=== PATIENT | male | born 1935 | race Native Hawaiian/Other Pacific Islander ===

== ENCOUNTER 2016-03-06 08:25 | Outpatient (CLI) | payer OTHER ==
[~2016-03-06 08:25] MED LIST: AMLO10TA PO; CIPRO500 MG PO; CLOTCRE5 EX; DIOVAN HC1 PO; DIOVAN HCT320 MG/25 PO; GLIP2.5T3 PO; LEVO0.0723 PO; LIPITOR40 MG PO; LOPRESSOR100 MG PO; WARFARIN5 MG PO
== END 2016-03-06 19:30 | disposition home or self-care (01) ==
LOC: LABW 08:25
DX: D68.8 Other specified coagulation defects (principal)
CPT/HCPCS: 36415; 85610

== ENCOUNTER 2016-04-23 12:31 | Outpatient (CLI) | payer OTHER | END 2016-04-23 19:23 | disposition home or self-care (01) | LOC: LABW 12:31 | DX: D68.8 Other specified coagulation defects (principal) | CPT/HCPCS: 36415; 85610 ==

== ENCOUNTER 2016-05-23 08:35 | Outpatient (CLI) | payer OTHER | END 2016-05-23 19:45 | disposition home or self-care (01) | LOC: LABW 08:35 | DX: D68.8 Other specified coagulation defects (principal) | CPT/HCPCS: 36415; 85610 ==

== ENCOUNTER 2016-06-10 15:53 | Outpatient (CLI) | payer OTHER | END 2016-06-10 19:28 | disposition home or self-care (01) | LOC: LABW 15:53 | DX: D68.8 Other specified coagulation defects (principal) | CPT/HCPCS: 36415; 85610 ==

== ENCOUNTER 2016-06-26 08:37 | Outpatient (CLI) | payer OTHER | END 2016-06-26 19:10 | disposition home or self-care (01) | LOC: LABW 08:37 | DX: D68.9 Coagulation defect, unspecified (principal) | CPT/HCPCS: 36415; 85610 ==

== ENCOUNTER 2016-07-08 08:10 | Outpatient (CLI) | payer OTHER ==
[2016-07-08 08:55] LABS: PLATELET COUNT 238 K/uL (142-355)
[2016-07-08 09:34] LABS: POTASSIUM 4.1 mmol/L (3.6-5.2)
== END 2016-07-08 19:19 | disposition home or self-care (01) ==
LOC: LABW 08:10
PROVIDERS: Internal Medicine
DX: E11.49 Type 2 diabetes mellitus with other diabetic neurological complication (principal)
CPT/HCPCS: 36415; 80053; 80061; 81000; 82043; 82570; 83036; 84439; 84443; 85027

== ENCOUNTER 2016-07-17 11:05 | Outpatient (CLI) | payer OTHER | END 2016-07-17 19:21 | disposition home or self-care (01) | LOC: LABW 11:05 | DX: D68.8 Other specified coagulation defects (principal) | CPT/HCPCS: 36415; 85610 ==

== ENCOUNTER 2016-08-19 08:23 | Outpatient (CLI) | payer OTHER | END 2016-08-19 09:30 | disposition home or self-care (01) | LOC: LABW 08:23 | DX: D68.8 Other specified coagulation defects (principal) | CPT/HCPCS: 36415; 85610 ==

== ENCOUNTER 2016-09-03 15:09 | Inpatient (IN) | payer OTHER ==
[~2016-09-03] VITALS: Ht 180.3 cm; Wt 140.4 kg
[2016-09-03 16:32] VITALS: BP 114/52; TEMP 98.5; Ht 180.3 cm; Wt 140.4 kg
[2016-09-03 16:45] LABS: PLATELET COUNT 285 K/uL (142-355)
[2016-09-03] MEDS ORDERED: JANTOVEN5 MG PO (16:48)
[2016-09-03] MEDS ORDERED: GRALISE600 MG PO (16:48)
[2016-09-03] MEDS ORDERED: FURO20TA67 PO (16:50)
[2016-09-03 16:56] LABS: POTASSIUM 3.9 mmol/L (3.6-5.2)
[2016-09-03 17:02] LABS: PARTIAL THROMBOPLASTIN TIME 31.4 SECONDS (24.5-33.6)
[2016-09-03 20:00] VITALS: BP 143/56; TEMP 99.5
[2016-09-04 00:16] VITALS: BP 134/59; TEMP 99.3
[2016-09-04 04:00] VITALS: BP 104/56; TEMP 98.1
[2016-09-04 06:27] LABS: PLATELET COUNT 268 K/uL (142-355)
[2016-09-04 06:42] LABS: POTASSIUM 3.6 mmol/L (3.6-5.2)
[2016-09-04 08:00] VITALS: BP 98/62; TEMP 98.7
[2016-09-04 12:00] VITALS: BP 156/61; TEMP 98.5
[2016-09-04 16:00] VITALS: BP 128/58; TEMP 99.6
[2016-09-04 20:00] VITALS: BP 152/54; TEMP 100
[2016-09-05 00:20] VITALS: BP 156/51; TEMP 99.5
[2016-09-05 04:00] VITALS: BP 152/52; TEMP 98.9
[2016-09-05 05:15] LABS: PLATELET COUNT 266 K/uL (142-355)
[2016-09-05 05:52] LABS: POTASSIUM 3.7 mmol/L (3.6-5.2)
[2016-09-05 08:00] VITALS: BP 151/69; TEMP 99.3
[2016-09-05 12:00] VITALS: BP 130/64; TEMP 97.3
== END 2016-09-05 13:50 | disposition home or self-care (01) | DRG 603 ==
LOC: MED/SURG 15:09
PROVIDERS: Emergency Medicine; ADMIT Internal Medicine
DX: L03.116 Cellulitis of left lower limb (principal); I73.9 Peripheral vascular disease, unspecified; E11.9 Type 2 diabetes mellitus without complications; I10 Essential (primary) hypertension; I87.2 Venous insufficiency (chronic) (peripheral)
CPT/HCPCS: 36415; 80053; 81000; 82948; 83735; 85027; 85610; 85651; 85730; 86140; 96372; J1644; J3490; Q9963

== ENCOUNTER 2016-09-10 12:59 | Outpatient (CLI) | payer OTHER ==
[~2016-09-10 12:59] MED LIST changes: +FURO20TA67 PO; +GRALISE600 MG PO; +JANTOVEN5 MG PO
== END 2016-09-10 19:37 | disposition home or self-care (01) ==
LOC: LAB 12:59
DX: L03.116 Cellulitis of left lower limb (principal)
CPT/HCPCS: 87070; 87077; 87185; 87186; 87205

== ENCOUNTER 2016-10-21 08:23 | Outpatient (CLI) | payer OTHER | END 2016-10-21 09:25 | disposition home or self-care (01) | LOC: LABW 08:23 | DX: D68.8 Other specified coagulation defects (principal) | CPT/HCPCS: 36415; 85610 ==

== ENCOUNTER 2016-11-19 14:03 | Outpatient (CLI) | payer OTHER | END 2016-11-19 19:13 | disposition home or self-care (01) | LOC: LABW 14:03 | DX: Z79.01 Long term (current) use of anticoagulants (principal); Z51.81 Encounter for therapeutic drug level monitoring | CPT/HCPCS: 36415; 85610 ==

== ENCOUNTER 2016-12-09 09:34 | Outpatient (CLI) | payer OTHER | END 2016-12-09 10:35 | disposition home or self-care (01) | LOC: LABW 09:34 | DX: Z79.01 Long term (current) use of anticoagulants (principal); Z51.81 Encounter for therapeutic drug level monitoring | CPT/HCPCS: 36415; 85610 ==

== ENCOUNTER 2016-12-16 09:36 | Outpatient (CLI) | payer OTHER | END 2016-12-16 19:30 | disposition home or self-care (01) | LOC: LABW 09:36 | DX: Z79.01 Long term (current) use of anticoagulants (principal); Z51.81 Encounter for therapeutic drug level monitoring | CPT/HCPCS: 36415; 85610 ==

== ENCOUNTER 2016-12-26 08:29 | Outpatient (CLI) | payer OTHER | END 2016-12-26 09:45 | disposition home or self-care (01) | LOC: CT 08:29 | DX: R40.4 Transient alteration of awareness (principal) ==

== ENCOUNTER 2017-01-28 11:23 | Outpatient (CLI) | payer OTHER | END 2017-01-28 12:25 | disposition home or self-care (01) | LOC: LABW 11:23 | DX: Z79.01 Long term (current) use of anticoagulants (principal); Z51.81 Encounter for therapeutic drug level monitoring | CPT/HCPCS: 36415; 85610 ==

== ENCOUNTER 2017-03-17 10:13 | Outpatient (CLI) | payer OTHER | END 2017-03-17 19:40 | disposition home or self-care (01) | LOC: LABW 10:13 | DX: Z79.01 Long term (current) use of anticoagulants (principal); Z51.81 Encounter for therapeutic drug level monitoring | CPT/HCPCS: 36415; 85610 ==

== ENCOUNTER 2017-03-20 12:48 | Outpatient (CLI) | payer OTHER | END 2017-03-20 13:40 | disposition home or self-care (01) | LOC: RESP 12:48 | DX: R40.4 Transient alteration of awareness (principal) ==

== ENCOUNTER 2017-04-11 08:32 | Outpatient (CLI) | payer OTHER | END 2017-04-11 19:38 | disposition home or self-care (01) | LOC: LABW 08:32 | DX: Z79.01 Long term (current) use of anticoagulants (principal); Z51.81 Encounter for therapeutic drug level monitoring | CPT/HCPCS: 36415; 85610 ==

== ENCOUNTER → 2017-06-21 17:58 | Outpatient (CLI) | payer OTHER | END | disposition home or self-care (01) | LOC: AMB 17:58 | DX: R04.0 Epistaxis (principal) ==

== ENCOUNTER 2017-07-07 11:22 | Outpatient (CLI) | payer OTHER | END 2017-07-07 21:23 | disposition home or self-care (01) | LOC: LABW 11:22 | DX: Z79.01 Long term (current) use of anticoagulants (principal); Z51.81 Encounter for therapeutic drug level monitoring | CPT/HCPCS: 36415; 85610 ==

== ENCOUNTER 2017-08-19 08:01 | Outpatient (CLI) | payer OTHER | END 2017-08-19 19:58 | disposition home or self-care (01) | LOC: LABW 08:01 | DX: Z79.01 Long term (current) use of anticoagulants (principal) | CPT/HCPCS: 36415; 85610 ==

== ENCOUNTER 2017-09-05 09:35 | Observation (INO) | payer OTHER ==
[~2017-09-05] VITALS: Ht 182.9 cm; Wt 141.2 kg
[2017-09-05 09:35] VITALS: BP 170/78; TEMP 98.4
[2017-09-05 10:27] LABS: PLATELET COUNT 180 K/uL (142-355)
[2017-09-05 10:35] VITALS: BP 174/80
[2017-09-05 10:38] LABS: POTASSIUM 3.7 mmol/L (3.6-5.2); SODIUM 136 mmol/L (136-145)
[2017-09-05 12:35] VITALS: BP 174/80
[2017-09-05 16:00] VITALS: BP 147/46; TEMP 97.7
[2017-09-05 18:02] VITALS: BP 155/60; TEMP 97.8; Ht 182.9 cm; Wt 141.2 kg
[2017-09-05] MEDS ORDERED: DONE5TAB PO (19:46)
[2017-09-05] MEDS ORDERED: METOPROLOL25 M1 PO (19:49)
[2017-09-05 20:00] VITALS: BP 176/51; TEMP 97.7
[2017-09-06] VITALS: BP 90/57; TEMP 98.1
[2017-09-06 04:00] VITALS: BP 141/54; TEMP 98.3
[2017-09-06 07:45] VITALS: BP 150/50; TEMP 97.8
[2017-09-06 12:26] VITALS: BP 158/60; TEMP 97.9
[2017-09-06] MEDS ORDERED: FURO20TA67 PO (14:30)
[2017-09-06] MEDS ORDERED: CLINDAMYCIN PO (14:40)
[2017-09-06] MEDS ORDERED: LOPRESSOR100 MG PO (14:44)
== END 2017-09-06 15:54 | disposition home or self-care (01) ==
LOC: ED 09:35 → MED/SURG 13:04
DX: Q34.8 Other specified congenital malformations of respiratory system (principal); R06.02 Shortness of breath; E11.9 Type 2 diabetes mellitus without complications; I25.10 Atherosclerotic heart disease of native coronary artery without angina pectoris; G47.33 Obstructive sleep apnea (adult) (pediatric); R60.0 Localized edema; L03.116 Cellulitis of left lower limb; L03.115 Cellulitis of right lower limb; E03.8 Other specified hypothyroidism; E66.01 Morbid (severe) obesity due to excess calories; Z68.41 Body mass index [BMI] 40.0-44.9, adult; Z71.3 Dietary counseling and surveillance; R06.4 Hyperventilation; Z86.73 Personal history of transient ischemic attack (TIA), and cerebral infarction without residual deficits
CPT/HCPCS: 36415; 36600; 80053; 82805; 83880; 84443; 84484; 85027; 85379; 85610; 93005; 94640; 94664; 94760; 99220; 99283; G0378; J1940; Q9963

== ENCOUNTER 2017-10-15 09:49 | Outpatient (CLI) | payer OTHER ==
[~2017-10-15 09:49] MED LIST changes: +CLINDAMYCIN PO; +DONE5TAB PO; +METOPROLOL25 M1 PO
== END 2017-10-15 19:26 | disposition home or self-care (01) ==
LOC: LABW 09:49
DX: Z79.01 Long term (current) use of anticoagulants (principal)
CPT/HCPCS: 36415; 85610

== ENCOUNTER 2017-10-30 08:57 | Outpatient (CLI) | payer OTHER | END 2017-10-30 23:18 | disposition home or self-care (01) | LOC: LABW 08:57 | DX: Z79.01 Long term (current) use of anticoagulants (principal) | CPT/HCPCS: 36415; 85610 ==

== ENCOUNTER 2017-11-03 08:31 | Outpatient (CLI) | payer OTHER ==
[2017-11-03 09:09] LABS: PLATELET COUNT 186 K/uL (142-355)
[2017-11-03 09:47] LABS: POTASSIUM 4.2 mmol/L (3.6-5.2)
== END 2017-11-03 23:20 | disposition home or self-care (01) ==
LOC: LABW 08:31
PROVIDERS: Internal Medicine
DX: E11.43 Type 2 diabetes mellitus with diabetic autonomic (poly)neuropathy (principal)
CPT/HCPCS: 36415; 80053; 80061; 83036; 84439; 84443; 85027

== ENCOUNTER 2017-11-04 11:37 | Outpatient (CLI) | payer OTHER | END 2017-11-04 22:24 | disposition home or self-care (01) | LOC: LAB 11:37 | DX: E11.43 Type 2 diabetes mellitus with diabetic autonomic (poly)neuropathy (principal); R82.99 Other abnormal findings in urine | CPT/HCPCS: 81000; 87077; 87086; 87088; 87186 ==

== ENCOUNTER 2017-12-03 10:33 | Outpatient (CLI) | payer OTHER | END 2017-12-03 10:41 | disposition short-term general hospital (02) | LOC: AMB 10:33 | DX: R11.2 Nausea with vomiting, unspecified (principal); R53.1 Weakness | CPT/HCPCS: A0425; A0427 ==

== ENCOUNTER 2017-12-03 10:42 | Observation (INO) | payer OTHER ==
[2017-12-03] VITALS (7 sets, daily range): BP systolic 122–166; BP diastolic 52–87; TEMP 98.1–101.2; Ht 185.4 cm; Wt 140.3 kg
[~2017-12-03] VITALS: Ht 185.4 cm; Wt 140.3 kg
[2017-12-03 11:44] LABS: PLATELET COUNT 239 K/uL (142-355)
[2017-12-03 11:54] LABS: POTASSIUM 3.9 mmol/L (3.6-5.2)
[2017-12-04] VITALS: BP 135/60; TEMP 100.1
[2017-12-04 04:00] VITALS: BP 122/55; TEMP 99.9
[2017-12-04 07:24] LABS: PLATELET COUNT 200 K/uL (142-355)
[2017-12-04 07:27] LABS: POTASSIUM 4.5 mmol/L (3.6-5.2)
[2017-12-04 08:02] VITALS: BP 102/86; TEMP 98.7
[2017-12-04 12:10] VITALS: BP 125/53; TEMP 100.3
== END 2017-12-04 13:00 | disposition home or self-care (01) ==
LOC: ED 10:42 → MED/SURG 12:55
PROVIDERS: Internal Medicine; ADMIT Emergency Medicine
DX: E86.0 Dehydration (principal); R11.2 Nausea with vomiting, unspecified; E11.22 Type 2 diabetes mellitus with diabetic chronic kidney disease; I12.9 Hypertensive chronic kidney disease with stage 1 through stage 4 chronic kidney disease, or unspecified chronic kidney disease; N18.4 Chronic kidney disease, stage 4 (severe); I25.10 Atherosclerotic heart disease of native coronary artery without angina pectoris; E66.01 Morbid (severe) obesity due to excess calories; E11.40 Type 2 diabetes mellitus with diabetic neuropathy, unspecified; G47.33 Obstructive sleep apnea (adult) (pediatric); G25.81 Restless legs syndrome; Z79.899 Other long term (current) drug therapy
CPT/HCPCS: 36415; 80053; 81002; 82150; 82550; 82553; 82805; 82948; 83690; 84484; 85027; 85610; 93005; 94760; 96360; 96374; 99220; 99284; G0378; J1650; J2060; J2405; J3490

== ENCOUNTER 2017-12-17 08:51 | Outpatient (CLI) | payer OTHER ==
[2017-12-17 09:23] LABS: PLATELET COUNT 241 K/uL (142-355)
[2017-12-17 09:38] LABS: POTASSIUM 4.4 mmol/L (3.6-5.2)
== END 2017-12-17 20:56 | disposition home or self-care (01) ==
LOC: LABW 08:51
PROVIDERS: Internal Medicine
DX: Z79.01 Long term (current) use of anticoagulants (principal); D72.829 Elevated white blood cell count, unspecified; N18.3 Chronic kidney disease, stage 3 (moderate); E11.43 Type 2 diabetes mellitus with diabetic autonomic (poly)neuropathy
CPT/HCPCS: 36415; 80069; 83036; 85027; 85610

== ENCOUNTER 2018-01-05 10:23 | Inpatient (IN) | payer OTHER ==
[~2018-01-05] VITALS: Ht 182.9 cm; Wt 135.2 kg
[2018-01-05] VITALS (7 sets, daily range): BP systolic 152–174; BP diastolic 64–83; TEMP 97.9–98.9; Ht 182.9 cm; Wt 135.2 kg
[2018-01-05 11:16] LABS: PLATELET COUNT 208 K/uL (142-355)
[2018-01-05 11:22] LABS: POTASSIUM 4.1 mmol/L (3.6-5.2)
[2018-01-05] MEDS ORDERED: LOPRESSOR100 MG PO (15:26)
[2018-01-05] MEDS ORDERED: WARF5TAB6 PO (15:42)
[2018-01-05 16:20] LABS: PARTIAL THROMBOPLASTIN TIME 26.3 SECONDS (24.5-33.6)
[2018-01-06] VITALS: BP 101/75; TEMP 98.8
[2018-01-06 04:01] VITALS: BP 124/69; TEMP 98.8
[2018-01-06 06:20] LABS: PLATELET COUNT 181 K/uL (142-355)
[2018-01-06 06:40] LABS: POTASSIUM 4.5 mmol/L (3.6-5.2); SODIUM 138 mmol/L (136-145)
[2018-01-06 08:00] VITALS: BP 132/52; TEMP 97.8
[2018-01-06 16:00] VITALS: BP 140/61; TEMP 97.9
[2018-01-06 20:00] VITALS: BP 114/54; TEMP 98.1
[2018-01-07 00:13] VITALS: BP 130/55; TEMP 98.2
[2018-01-07 04:00] VITALS: BP 128/38; TEMP 97.9
[2018-01-07 08:30] VITALS: BP 143/67; TEMP 98.1
[2018-01-07 12:00] VITALS: BP 143/67; TEMP 97.9
[2018-01-07 16:00] VITALS: BP 141/63; TEMP 98.1
[2018-01-07 20:38] VITALS: BP 146/59; TEMP 98.5
[2018-01-08] VITALS: BP 152/63; TEMP 98.2
[2018-01-08 04:00] VITALS: BP 144/62; TEMP 98.8
[2018-01-08 06:00] LABS: PLATELET COUNT 175 K/uL (142-355)
[2018-01-08 06:22] LABS: POTASSIUM 3.9 mmol/L (3.6-5.2)
[2018-01-08 08:00] VITALS: BP 163/64; TEMP 97.8
== END 2018-01-08 11:05 | disposition home or self-care (01) | DRG 690 ==
LOC: ED 10:23 → MED/SURG 13:40
PROVIDERS: Internal Medicine
DX: N10 Acute pyelonephritis (principal); B96.20 Unspecified Escherichia coli [E. coli] as the cause of diseases classified elsewhere; R41.82 Altered mental status, unspecified; F03.90 Unspecified dementia, unspecified severity, without behavioral disturbance, psychotic disturbance, mood disturbance, and anxiety; N20.0 Calculus of kidney; E66.01 Morbid (severe) obesity due to excess calories; G47.33 Obstructive sleep apnea (adult) (pediatric); I10 Essential (primary) hypertension; E11.42 Type 2 diabetes mellitus with diabetic polyneuropathy
CPT/HCPCS: 36415; 80053; 81000; 82550; 82948; 84484; 85027; 85610; 85730; 87077; 87086; 87088; 87186; 93005; 94760; 99284; J0696; J3490; J7120

== ENCOUNTER 2018-01-20 08:20 | Outpatient (CLI) | payer OTHER ==
[~2018-01-20 08:20] MED LIST changes: +WARF5TAB6 PO
== END 2018-01-20 21:01 | disposition home or self-care (01) ==
LOC: LABW 08:20
DX: Z79.01 Long term (current) use of anticoagulants (principal)
CPT/HCPCS: 36415; 85610

== ENCOUNTER 2018-03-10 09:18 | Outpatient (CLI) | payer OTHER | END 2018-03-10 23:39 | disposition home or self-care (01) | LOC: LABW 09:18 | DX: Z79.01 Long term (current) use of anticoagulants (principal) | CPT/HCPCS: 36415; 85610 ==

== ENCOUNTER 2018-04-01 09:48 | Outpatient (CLI) | payer OTHER | END 2018-04-01 19:15 | disposition home or self-care (01) | LOC: LABW 09:48 | DX: D68.9 Coagulation defect, unspecified (principal); L03.011 Cellulitis of right finger | CPT/HCPCS: 36415; 85610; 87070; 87077; 87185; 87186; 87205 ==

== ENCOUNTER 2018-04-07 10:29 | Emergency (ER) | payer OTHER ==
[~2018-04-07] VITALS: Ht 182.9 cm; Wt 129.7 kg
[2018-04-07 11:45] LABS: PLATELET COUNT 332 K/uL (142-355)
[2018-04-07 11:47] LABS: POTASSIUM 4.6 mmol/L (3.6-5.2)
[2018-04-07 11:58] LABS: PARTIAL THROMBOPLASTIN TIME 33.6 SECONDS (24.5-33.6)
[2018-04-07 13:15] VITALS: BP 141/64; TEMP 98.1
== END 2018-04-07 13:15 | disposition home or self-care (01) ==
LOC: ED 10:29
PROVIDERS: Family Medicine
DX: G45.9 Transient cerebral ischemic attack, unspecified (principal)
CPT/HCPCS: 36415; 80053; 81000; 85027; 85610; 85730; 99283

== ENCOUNTER 2018-05-18 09:23 | Outpatient (CLI) | payer OTHER | END 2018-05-18 20:28 | disposition home or self-care (01) | LOC: LABW 09:23 | DX: D68.9 Coagulation defect, unspecified (principal) | CPT/HCPCS: 36415; 85610 ==

== ENCOUNTER 2018-06-26 09:01 | Outpatient (CLI) | payer OTHER | END 2018-06-26 19:58 | disposition home or self-care (01) | LOC: LABW 09:01 | DX: D68.8 Other specified coagulation defects (principal) | CPT/HCPCS: 36415; 85610 ==

== ENCOUNTER 2018-07-05 16:48 | Outpatient (CLI) | payer OTHER | END 2018-07-05 16:56 | disposition short-term general hospital (02) | LOC: AMB 16:48 | DX: R11.2 Nausea with vomiting, unspecified (principal); R53.1 Weakness; H92.02 Otalgia, left ear | CPT/HCPCS: A0425; A0427 ==

== ENCOUNTER 2018-07-22 09:28 | Outpatient (CLI) | payer OTHER ==
[2018-07-22 09:54] LABS: PLATELET COUNT 217 K/uL (142-355)
[2018-07-22 10:17] LABS: POTASSIUM 4.5 mmol/L (3.6-5.2)
== END 2018-07-22 21:04 | disposition home or self-care (01) ==
LOC: LABW 09:28
PROVIDERS: Internal Medicine
DX: E11.9 Type 2 diabetes mellitus without complications (principal); D68.8 Other specified coagulation defects
CPT/HCPCS: 36415; 80053; 80061; 81000; 82043; 82570; 83036; 84439; 84443; 85027; 85610

== ENCOUNTER 2018-10-28 08:27 | Outpatient (CLI) | payer OTHER | END 2018-10-28 21:35 | disposition home or self-care (01) | LOC: LABW 08:27 | DX: D68.8 Other specified coagulation defects (principal) | CPT/HCPCS: 36415; 85610 ==

== ENCOUNTER 2018-11-26 08:36 | Outpatient (CLI) | payer OTHER | END 2018-11-26 23:21 | disposition home or self-care (01) | LOC: LABW 08:36 | DX: D68.8 Other specified coagulation defects (principal) | CPT/HCPCS: 36415; 85610 ==

== ENCOUNTER 2018-12-17 09:55 | Outpatient (CLI) | payer OTHER | END 2018-12-17 23:29 | disposition home or self-care (01) | LOC: LABW 09:55 | DX: D68.8 Other specified coagulation defects (principal) | CPT/HCPCS: 36415; 85610 ==

== ENCOUNTER 2019-01-05 09:22 | Outpatient (CLI) | payer OTHER ==
[2019-01-05 09:44] LABS: PLATELET COUNT 194 K/uL (142-355)
[2019-01-05 10:33] LABS: POTASSIUM 3.6 mmol/L (3.6-5.2)
== END 2019-01-05 19:33 | disposition home or self-care (01) ==
LOC: LABW 09:22
PROVIDERS: Internal Medicine
DX: D68.8 Other specified coagulation defects (principal); E11.9 Type 2 diabetes mellitus without complications
CPT/HCPCS: 36415; 80053; 80061; 81000; 83036; 84439; 84443; 85027; 85610

== ENCOUNTER 2019-01-13 09:02 | Outpatient (CLI) | payer OTHER | END 2019-01-13 20:09 | disposition home or self-care (01) | LOC: LABW 09:02 | DX: D68.8 Other specified coagulation defects (principal) | CPT/HCPCS: 36415; 85610 ==

== ENCOUNTER 2019-01-27 09:22 | Outpatient (CLI) | payer OTHER | END 2019-01-27 20:34 | disposition home or self-care (01) | LOC: LABW 09:22 | DX: D68.8 Other specified coagulation defects (principal) | CPT/HCPCS: 36415; 85610 ==

== ENCOUNTER 2019-01-29 09:29 | Outpatient (CLI) | payer OTHER | END 2019-01-29 19:49 | disposition home or self-care (01) | LOC: LABW 09:29 | DX: D68.8 Other specified coagulation defects (principal) | CPT/HCPCS: 36415; 85610 ==

== ENCOUNTER 2019-02-08 08:37 | Outpatient (CLI) | payer OTHER | END 2019-02-08 22:53 | disposition home or self-care (01) | LOC: LABW 08:37 | DX: D68.8 Other specified coagulation defects (principal) | CPT/HCPCS: 36415; 85610 ==

== ENCOUNTER 2019-03-01 10:24 | Outpatient (CLI) | payer OTHER | END 2019-03-01 22:34 | disposition home or self-care (01) | LOC: LABW 10:24 | DX: D68.8 Other specified coagulation defects (principal) | CPT/HCPCS: 36415; 85610 ==

== ENCOUNTER 2019-03-23 09:18 | Outpatient (CLI) | payer OTHER | END 2019-03-23 19:24 | disposition home or self-care (01) | LOC: LABW 09:18 | DX: D68.8 Other specified coagulation defects (principal) | CPT/HCPCS: 36415; 85610 ==

== ENCOUNTER 2019-03-30 08:41 | Outpatient (CLI) | payer OTHER ==
[2019-03-30 09:24] LABS: POTASSIUM 4.1 mmol/L (3.6-5.2)
[2019-03-30 10:44] LABS: PLATELET COUNT 205 K/uL (142-355)
== END 2019-03-30 22:19 | disposition home or self-care (01) ==
LOC: LABW 08:41
PROVIDERS: Internal Medicine
DX: Z00.00 Encounter for general adult medical examination without abnormal findings (principal); I10 Essential (primary) hypertension; E11.9 Type 2 diabetes mellitus without complications
CPT/HCPCS: 36415; 80053; 85027

== ENCOUNTER 2019-07-12 09:24 | Outpatient (CLI) | payer OTHER ==
[2019-07-12 10:12] LABS: PLATELET COUNT 192 K/uL (142-355)
[2019-07-12 10:18] LABS: POTASSIUM 4.2 mmol/L (3.6-5.2)
== END 2019-07-12 19:40 | disposition home or self-care (01) ==
LOC: LABW 09:24
PROVIDERS: Internal Medicine
DX: E11.9 Type 2 diabetes mellitus without complications (principal); D68.8 Other specified coagulation defects; E03.8 Other specified hypothyroidism; R82.998 Other abnormal findings in urine
CPT/HCPCS: 36415; 80053; 80061; 81000; 82043; 82570; 83036; 84439; 84443; 85027; 85610; 87086; 87088

== ENCOUNTER 2019-08-24 10:53 | Outpatient (CLI) | payer OTHER | END 2019-08-24 20:34 | disposition home or self-care (01) | LOC: LABW 10:53 | DX: D68.8 Other specified coagulation defects (principal) | CPT/HCPCS: 36415; 85610 ==

== ENCOUNTER 2019-10-27 09:52 | Outpatient (CLI) | payer OTHER | END 2019-10-27 23:59 | disposition home or self-care (01) | LOC: LABW 09:52 | DX: D68.8 Other specified coagulation defects (principal) | CPT/HCPCS: 36415; 85610 ==

== ENCOUNTER 2019-12-21 08:52 | Outpatient (CLI) | payer OTHER | END 2019-12-21 20:14 | disposition home or self-care (01) | LOC: LABW 08:52 | DX: D68.8 Other specified coagulation defects (principal) | CPT/HCPCS: 36415; 85610 ==

== ENCOUNTER 2020-01-05 08:33 | Outpatient (CLI) | payer OTHER | END 2020-01-05 19:42 | disposition home or self-care (01) | LOC: LABW 08:33 | PROVIDERS: ATTEND Internal Medicine | DX: D68.8 Other specified coagulation defects (principal) | CPT/HCPCS: 36415; 85610 ==

== ENCOUNTER 2020-06-22 09:03 | Outpatient (CLI) | payer OTHER ==
[2020-06-22 09:33] LABS: PLATELET COUNT 164 K/uL (142-355)
[2020-06-22 09:54] LABS: POTASSIUM 4.4 mmol/L (3.6-5.2)
== END 2020-06-22 19:23 | disposition home or self-care (01) ==
LOC: LABW 09:03
PROVIDERS: ATTEND Internal Medicine
DX: D68.8 Other specified coagulation defects (principal); E11.9 Type 2 diabetes mellitus without complications; R82.998 Other abnormal findings in urine
CPT/HCPCS: 36415; 80053; 80061; 81000; 82043; 83036; 84439; 84443; 85027; 85610; 87077; 87086; 87088; 87186

== ENCOUNTER 2020-07-17 12:42 | Inpatient (IN) | payer OTHER ==
[~2020-07-17] VITALS: Ht 180.3 cm; Wt 130.3 kg
[2020-07-17] VITALS (10 sets, daily range): BP systolic 128–155; BP diastolic 56–87; TEMP 97.2–97.9
[2020-07-17 13:24] LABS: PLATELET COUNT 145 K/uL (142-355)
[2020-07-17 13:33] LABS: SODIUM 137 mmol/L (136-145)
[2020-07-18] VITALS (7 sets, daily range): BP systolic 127–152; BP diastolic 50–63; TEMP 96.9–98.7; Ht 180.3 cm; Wt 130.3 kg
[2020-07-18 05:49] LABS: PLATELET COUNT 129 K/uL (142-355)
[2020-07-18 06:00] LABS: POTASSIUM 4.3 mmol/L (3.6-5.2)
--- NOTE | 2020-07-18 08:15 | NUR ---
PT'S AT BEDSIDE, ENCOURAGED TO ALLOW STAFF TO ASSIST HER IN CARING FOR PATIENT TO PROVIDE A REST. V/O HER APPRECIATION BUT INSISTED SHE AND PATIENT WOULD RATHER HER PROVIDE CARE FOR PATIENT.
--- NOTE | 2020-07-18 08:20 | NUR ---
DR. BETANCOURT AT BEDSIDE ASSESSING PATIENT. NO NEW ORDERS RECEIVED AT THIS TIME.
--- NOTE | 2020-07-18 20:25 | NUR ---
ENTERED PATIENT'S ROOM AT THIS TIME. AT BEDSIDE IN CHAIR. PATIENT RESTING QUIETLY IN BED WITH EYES CLOSED. CPAP INTACT. NAD NOTED. PATIENT ALERT AND AWAKE TO TOUCH. NO CONCERNS OR COMPLAINTS VOICED. CALL LIGHT WITHIN REACH.
[2020-07-19] VITALS: BP 153/80; TEMP 97.9
[2020-07-19 04:00] VITALS: BP 136/62; TEMP 97.3
[2020-07-19 04:59] LABS: PLATELET COUNT 136 K/uL (142-355)
[2020-07-19 05:13] LABS: POTASSIUM 3.8 mmol/L (3.6-5.2)
--- NOTE | 2020-07-19 06:38 | NUR ---
PATIENT RESTING QUIETLY IN BED. SYNTHROID GIVEN. CPAP REMOVED. NC APPLIED @ 3L/MIN. BED LOCKED AND IN LOWEST POSITION. CALL LIGHT WITHIN REACH.
[2020-07-19 08:00] VITALS: BP 166/70; TEMP 97.8
[2020-07-19 12:00] VITALS: BP 136/55; TEMP 97.6
[2020-07-19] MEDS ORDERED: CEFD300C2 PO (13:55)
--- NOTE | 2020-07-19 14:38 | NUR ---
PT'S HOME MEDS RETURNED TO HIS SPOUSE.
--- NOTE | 2020-07-19 15:34 | NUR ---
DC INSTRUCTIONS EXPLAINED TO PT'S SPOUSE WHO VERBALIZED UNDERSTANDING. PT LEFT FLOOR IN NAD VIA PERSONAL WC FOR TRANSPORT HOME WITH SPOUSE. BELONGINGS SENT HOME WITH PT.
== END 2020-07-19 15:25 | disposition home or self-care (01) | DRG 689 ==
LOC: ED 12:42 → MED/SURG 16:06 → UNDODEPER 07-19 18:17
PROVIDERS: Emergency Medicine; ADMIT Internal Medicine Endocrinology, Diabetes & Metabolism; ATTEND Internal Medicine Endocrinology, Diabetes & Metabolism
DX: N30.00 Acute cystitis without hematuria (principal); J96.01 Acute respiratory failure with hypoxia; G92 Toxic encephalopathy; Z68.41 Body mass index [BMI] 40.0-44.9, adult; G47.33 Obstructive sleep apnea (adult) (pediatric); E11.9 Type 2 diabetes mellitus without complications; E78.49 Other hyperlipidemia; I25.10 Atherosclerotic heart disease of native coronary artery without angina pectoris; B96.20 Unspecified Escherichia coli [E. coli] as the cause of diseases classified elsewhere; E66.01 Morbid (severe) obesity due to excess calories; I11.0 Hypertensive heart disease with heart failure; I50.9 Heart failure, unspecified
CPT/HCPCS: 36415; 80048; 80053; 81000; 82550; 83605; 83880; 84484; 85027; 85610; 87077; 87086; 87088; 87186; 87635; 93005; 94760; 96360; 96365; 96366; 99284; J0696; J1815; J1940; J2185; U0003

== ENCOUNTER 2020-08-23 10:40 | Emergency (ER) | payer OTHER ==
[~2020-08-23 10:40] MED LIST changes: +CEFD300C2 PO
[2020-08-30 14:30] LABS: PLATELET COUNT 148 K/uL (142-355)
== END 2020-08-23 13:26 | disposition short-term general hospital (02) ==
LOC: ED 10:40
PROVIDERS: Family Medicine
DX: R77.8 Other specified abnormalities of plasma proteins (principal); R79.89 Other specified abnormal findings of blood chemistry; R06.02 Shortness of breath; J90 Pleural effusion, not elsewhere classified; R91.8 Other nonspecific abnormal finding of lung field; R42 Dizziness and giddiness; W18.39XA Other fall on same level, initial encounter; Y92.098 Other place in other non-institutional residence as the place of occurrence of the external cause
CPT/HCPCS: 36415; 36600; 80048; 82550; 82553; 82805; 83605; 84484; 85027; 93005; 94664; 96372; 96374; 99285; J1650; J2930

== ENCOUNTER 2020-09-01 08:39 | Outpatient (CLI) | payer OTHER | END 2020-09-01 21:52 | disposition home or self-care (01) | LOC: LABW 08:39 | PROVIDERS: ATTEND Internal Medicine | DX: D68.8 Other specified coagulation defects (principal) | CPT/HCPCS: 36415; 85610 ==

== ENCOUNTER 2021-03-17 10:42 | Inpatient (IN) | payer OTHER ==
[~2021-03-17] VITALS: Ht 170.2 cm; Wt 123.6 kg
[2021-03-17] VITALS (9 sets, daily range): BP systolic 125–160; BP diastolic 71–87; TEMP 97.9–98.2; Ht 170.2 cm; Wt 123.6 kg
[2021-03-17 11:16] LABS: POTASSIUM 4.9 mmol/L (3.6-5.2)
[2021-03-17 11:30] LABS: PLATELET COUNT 129 K/uL (142-355)
[2021-03-17 11:33] LABS: PARTIAL THROMBOPLASTIN TIME 35.5 SECONDS (24.5-33.6)
[2021-03-18] VITALS: BP 135/76; TEMP 97.6
[2021-03-18 04:03] VITALS: BP 72/57; TEMP 97.3
[2021-03-18 06:34] LABS: PLATELET COUNT 120 K/uL (142-355)
[2021-03-18 06:49] LABS: POTASSIUM 4.7 mmol/L (3.6-5.2)
[2021-03-18 08:00] VITALS: BP 136/74; TEMP 98.4
[2021-03-18 12:00] VITALS: BP 122/71; TEMP 98.6
[2021-03-18 16:00] VITALS: BP 122/52; TEMP 98.7
[2021-03-18 20:00] VITALS: BP 139/83; TEMP 97.6
[2021-03-19] VITALS: BP 119/70; TEMP 96
[2021-03-19 04:00] VITALS: BP 111/67; TEMP 97.3
[2021-03-19 06:14] LABS: POTASSIUM 5.1 mmol/L (3.6-5.2)
[2021-03-19 06:35] LABS: PLATELET COUNT 119 K/uL (142-355)
[2021-03-19 08:00] VITALS: BP 149/74; TEMP 97.4
[2021-03-19 12:00] VITALS: BP 149/74; TEMP 97.4
[2021-03-19 16:00] VITALS: BP 165/86; TEMP 97.8
[2021-03-19 20:00] VITALS: BP 99/53; TEMP 98.6
[2021-03-20 00:11] VITALS: BP 135/43; TEMP 97.5
[2021-03-20 02:49] LABS: PLATELET COUNT 146 K/uL (142-355)
[2021-03-20 04:00] VITALS: BP 126/63; TEMP 97.8
[2021-03-20 04:05] LABS: POTASSIUM 4.7 mmol/L (3.6-5.2)
[2021-03-20 08:00] VITALS: BP 150/68; TEMP 98
[2021-03-20 12:00] VITALS: BP 152/99; TEMP 98.2
[2021-03-20] MEDS ORDERED: CHOL100034 PO (16:16)
[2021-03-20] MEDS ORDERED: ASCO500T18 PO (16:16)
[2021-03-20] MEDS ORDERED: PULMICORT180 MCG/AC INH (16:17)
[2021-03-20] MEDS ORDERED: FAMOTIDINE20 MG PO (16:19)
[2021-03-20] MEDS ORDERED: IPRAAER INH (16:23)
[2021-03-20] MEDS ORDERED: VALS160T2 PO (16:23)
== END 2021-03-20 18:49 | disposition home or self-care (01) | DRG 178 ==
LOC: ED 10:42 → MED/SURG 13:05
PROVIDERS: Family Medicine; ADMIT Family Medicine; ATTEND Internal Medicine
DX: U07.1 COVID-19 (principal); N39.0 Urinary tract infection, site not specified; Z68.41 Body mass index [BMI] 40.0-44.9, adult; E78.49 Other hyperlipidemia; E03.8 Other specified hypothyroidism; I48.91 Unspecified atrial fibrillation; Z79.01 Long term (current) use of anticoagulants; J44.9 Chronic obstructive pulmonary disease, unspecified; B95.2 Enterococcus as the cause of diseases classified elsewhere; G47.33 Obstructive sleep apnea (adult) (pediatric); E11.22 Type 2 diabetes mellitus with diabetic chronic kidney disease; I13.10 Hypertensive heart and chronic kidney disease without heart failure, with stage 1 through stage 4 chronic kidney disease, or unspecified chronic kidney disease; N18.32 Chronic kidney disease, stage 3b; E66.01 Morbid (severe) obesity due to excess calories
CPT/HCPCS: 36415; 51702; 80053; 81000; 82550; 82948; 84439; 84443; 84484; 85007; 85027; 85610; 85730; 87077; 87086; 87088; 87185; 87186; 87635; 93005; 94760; 96367; 96372; 96374; 96375; 99284; J0248; J0456; J1100; J2060; J2930; U0003

== ENCOUNTER 2021-03-27 13:58 | Inpatient (IN) | payer OTHER ==
[~2021-03-27] VITALS: Ht 180.3 cm; Wt 126.7 kg
[2021-03-27] VITALS (8 sets, daily range): BP systolic 92–165; BP diastolic 37–74; TEMP 98.3–98.4
[~2021-03-27 13:58] MED LIST changes: +ASCO500T18 PO; +CHOL100034 PO; +FAMOTIDINE20 MG PO; +GABA300C2 PO; -GLIP2.5T3 PO; +GLUCOTROL XL PO; -GRALISE600 MG PO; +IPRAAER INH; +PULMICORT180 MCG/AC INH; +VALS160T2 PO
[2021-03-27 15:01] LABS: PLATELET COUNT 160 K/uL (142-355)
[2021-03-27 15:33] LABS: POTASSIUM 5.3 mmol/L (3.6-5.2)
[2021-03-28] VITALS: BP 98/59; TEMP 97.2
[2021-03-28 04:00] VITALS: BP 94/45; TEMP 97.5
[2021-03-28 05:53] LABS: PLATELET COUNT 182 K/uL (142-355)
[2021-03-28 06:08] LABS: POTASSIUM 5.9 mmol/L (3.6-5.2)
[2021-03-28 06:47] VITALS: BP 130/62; TEMP 98.3; Ht 180.3 cm; Wt 126.7 kg
[2021-03-28 08:00] VITALS: BP 98/77; TEMP 98.8
== END 2021-03-28 16:52 | disposition expired | DRG 177 ==
LOC: ED 14:01 → MED/SURG 18:30
PROVIDERS: ADMIT Emergency Medicine; ATTEND Internal Medicine Endocrinology, Diabetes & Metabolism
DX: U07.1 COVID-19 (principal); J12.82 Pneumonia due to coronavirus disease 2019; J44.0 Chronic obstructive pulmonary disease with (acute) lower respiratory infection; N39.0 Urinary tract infection, site not specified; N18.4 Chronic kidney disease, stage 4 (severe); E87.1 Hypo-osmolality and hyponatremia; E78.49 Other hyperlipidemia; E03.8 Other specified hypothyroidism; B95.2 Enterococcus as the cause of diseases classified elsewhere; F01.50 Vascular dementia, unspecified severity, without behavioral disturbance, psychotic disturbance, mood disturbance, and anxiety; I48.91 Unspecified atrial fibrillation; E11.22 Type 2 diabetes mellitus with diabetic chronic kidney disease; I12.9 Hypertensive chronic kidney disease with stage 1 through stage 4 chronic kidney disease, or unspecified chronic kidney disease; E87.6 Hypokalemia; I46.9 Cardiac arrest, cause unspecified
CPT/HCPCS: 36415; 51702; 80053; 81000; 83880; 84484; 85027; 85610; 87040; 87635; 93005; 96360; 96365; 99284; J2543; U0003